=== PATIENT | female | born 2000 | race Caucasian/White ===

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

== ENCOUNTER 2022-01-08 12:34 | Outpatient (CLI) | payer OTHER, SELFPAY ==
[2022-01-08 14:09] LABS: Albumin* 4.5 g/dL (3.3-5.0)
[2022-01-08 14:12] LABS: Aspartate Amino Transferase* 32 U/L (12-35); Bilirubin Direct* 0.2 mg/dL (0.0-0.5); Bilirubin Total* 0.2 mg/dL (0.1-1.5); Total Protein* 7.5 g/dL (6.0-8.3)
[2022-01-08 14:13] LABS: Alanine Aminotransferase* 28 U/L (4-35); Alkaline Phosphatase* 93 U/L (40-150)
== END 2022-01-08 12:35 | disposition home or self-care (01) ==
PROVIDERS: PCP Physician Assistant Medical; Visit Provider Physician Assistant Medical
DX: R74.8 Abnormal levels of other serum enzymes (principal)
CPT/HCPCS: 80076

== ENCOUNTER 2022-08-11 15:42 | Outpatient (CLI) | payer OTHER, SELFPAY | END 2022-08-11 15:43 | disposition home or self-care (01) | PROVIDERS: PCP Physician Assistant Medical; Visit Provider Physician Assistant Medical | DX: R53.83 Other fatigue (principal); D64.9 Anemia, unspecified; R74.8 Abnormal levels of other serum enzymes | CPT/HCPCS: 80053; 82306; 83540; 84443; 85027 ==

== ENCOUNTER 2023-09-28 09:23 | Outpatient (CLI) | payer OTHER, SELFPAY | END 2023-09-28 09:24 | disposition home or self-care (01) | LOC: NFLDREF 10-19 12:00 | PROVIDERS: PCP Physician Assistant Medical; Referring Provider Physician Assistant Medical; Visit Provider Physician Assistant Medical | DX: Z13.29 Encounter for screening for other suspected endocrine disorder (principal); Z13.228 Encounter for screening for other metabolic disorders; Z13.220 Encounter for screening for lipoid disorders | CPT/HCPCS: 80053; 80061; 84443 ==